=== PATIENT | female | born 1965 | race Caucasian/White ===

== ENCOUNTER 2016-09-14 21:18 | Emergency (ER) | payer MEDICAID ==
--- NOTE | 2016-09-14 21:56 | Emergency Department Record ---
History of Present Illness - General Chief complaint: Pain Stated complaint: MOUTH AND FACIAL PAIN Time Seen by Provider: 09/14/16 21:51 Source: Patient Mode of Arrival: Ambulatory Limitations: No limitations - History of Present Illness Initial comments: The patient is here due to mouth pain for 4 days. She had some sort of treatment to her upper front teeth done by a dentist in [place] 4 days ago and has had pain since. She feels pain to her face around her nose but denies any swelling or bruising. She has been unable to contact her Dentist so she decided to come to the ER. There has been no difficulty swallowing, breathing or sore throat. MD Complaint: Other Onset/Timin -: Days(s) Location: Other History of Same: No Severity scale (1-10): 6 Quality: Aching, Crushing Consistency: Constant Improves with: Medication Worsens with: Other - Related Data Previous Rx's Medication Instructions Recorded Clindamycin HCl [Cleocin HCl] 300 mg PO QID #28 capsule 09/14/16 Allergies Allergy/AdvReac Type Severity Reaction Status Date / Time naproxen [From Naprosyn] Allergy RASH Verified 09/14/16 21:22 Penicillins Allergy SHORTNESS Verified 09/14/16 21:22 OF BREATH ibuprofen AdvReac ABDOMINAL Verified 09/14/16 21:22 PAIN Travel Screening - Travel/Exposure Within Last 30 Days Have you traveled within the last 30 days?: No - Travel Symptoms Symptom Screening: None Review of Systems Constitutional: Denies: Chills, Fever Past Medical History - SOCIAL HISTORY Smoking Status: Heavy tobacco smoker (>10/day) - RESPIRATORY Hx Respiratory Disorders: No - CARDIOVASCULAR Hx Cardio Disorders: No - NEURO Hx Neuro Disorders: No - GI Hx GI Disorders: No - Hx Genitourinary Disorders: No - ENDOCRINE Hx Endocrine Disorders: No - MUSCULOSKELETAL Hx Musculoskeletal Disorders: No - PSYCH Hx Psych Problems: No - HEMATOLOGY/ONCOLOGY Hx Hematology/Oncology Disorders: No Family Medical History Any Significant Family History?: Yes Hx Cancer: Father Hx Diabetes: Mother, Grandparents Hx Heart Disease: Mother, Grandparents Hx Stroke: Grandparents Physical Exam - General General Appearance: Alert, Oriented x3, Cooperative, No acute distress - Head Head exam: Atraumatic, Normocephalic, Normal inspection - Eye Eye exam: Normal appearance, PERRL - ENT ENT exam: Normal exam (There is no swelling, erythema or tenderness to the maxillary areas bilaterally.) Teeth exam: Dental caries, Gingival enlargement (and slight erosions to the gum line about teeth # 7-9. ), Other. negative: Normal inspection Throat exam: Normal inspection - Neck Neck exam: Normal inspection, Full ROM. negative: Tenderness - Respiratory Respiratory exam: Normal lung sounds bilaterally. negative: Respiratory distress - Cardiovascular Cardiovascular Exam: Regular rate, Normal rhythm, Normal heart sounds Course Vital Signs 09/14/16 21:25 Temperature 98.8 F Pulse Rate [ 72 Pulse Ox Probe] Respiratory 20 Rate Blood Pressure 125/67 [Left Arm] Pulse Ox 99 - Reevaluation(s) Reevaluation #1: I did explain to the patient we will treat her with Clindamycin and would like to to continue to try to contact her Dentist tomorrow. 09/14/16 22:04 Disposition Disposition: Discharge Clinical Impression: Mouth pain Disposition: Home, Self-Care Condition: (1) Good Instructions: Toothache (ED) Additional Instructions: Please take your Clindamycin as directed. Please see your Dentist TOMÁS. Return to the ER for any problems. Prescriptions: Clindamycin HCl [Cleocin HCl] 300 mg PO QID #28 capsule Forms: Patient Portal Access Time of Disposition: 22:06 Quality - Quality Measures Quality Measures: N/A - Blood Pressure Screening View Details: Yes Blood Pressure Classification: Pre-Hypertensive BP Reading Systolic Measurement: 125 Diastolic Measurement: 67 Screening for High Blood Pressure: < Pre-Hypertensive BP, F/U Documented > [ [id number]] Pre-Hypertensive Follow-up Interventions: Follow-up with rescreen every year.
[2016-09-14] MEDS: CLINDAMYCIN 150 MG CAP PO ONE (22:13)
[2016-09-14] MEDS: ACETAMINOPHEN 325 MG TAB PO ONE (22:13)
[2016-09-14] MEDS: HYDROCODONE/APAP 5/325MG TABLET PO ONE (22:14)
== END 2016-09-14 22:20 | disposition home or self-care (01) ==
LOC: ER 21:18
DX: K13.79 Other lesions of oral mucosa (principal); F17.210 Nicotine dependence, cigarettes, uncomplicated
CPT/HCPCS: 99282